=== PATIENT | male | born 1985 | race Caucasian/White ===

== ENCOUNTER 2016-10-28 01:39 | Inpatient (IN) | payer OTHER ==
[~2016-10-28] VITALS: Ht 180.3 cm; Wt 126.7 kg
[2016-10-28 02:20] LABS: HEMATOCRIT 44.9 % (38.0-50.0); MCH 28.7 PG (29.0-34.0); MCHC 34.3 G/DL (30.0-36.0); MCV 83.6 FL (86-99); MEAN PLAT.VOLUME 9.5 uM^3 (9.0-12.4); PLATELET COUNT 329 K/uL (156-360); RBC DIS.WIDTH-CV 14.2 % (11.8-14.6); RED BLOOD COUNT 5.37 M/uL (4.00-5.50); WHITE BLOOD COUNT 12.8 K/uL (4.1-10.2)
[2016-10-28 02:27] LABS: CHLORIDE 104 mEq/L (99-109); POTASSIUM 3.7 mEq/L (3.7-5.4); SODIUM 138 mEq/L (136-147)
[2016-10-28 02:28] LABS: GLUCOSE 116 mg/dL (70-99)
[2016-10-28 02:30] LABS: ANION GAP 11 MEQ/L (2-14)
[2016-10-28 02:32] LABS: GFR ESTIMATE (CALCULATED) > 59 mL/min/
[2016-10-28 02:33] LABS: UREA NITROGEN (BUN) 13 mg/dL (9-23)
[2016-10-28] MEDS ORDERED: PREDNISONE10 MG PO (03:58)
[2016-10-28] MEDS ORDERED: DULERA 100 MCG/13 GM IH (08:06)
[2016-10-28] MEDS ORDERED: PROAIR HFA8.5 GM IH (08:06)
[2016-10-28 12:49] VITALS: BP 133/83
[2016-10-28 18:18] VITALS: BP 136/81
[2016-10-29 03:07] VITALS: BP 133/77
[2016-10-29 06:13] LABS: HEMATOCRIT 44.2 % (38.0-50.0); MCH 28.4 PG (29.0-34.0); MCHC 32.8 G/DL (30.0-36.0); MCV 86.5 FL (86-99); MEAN PLAT.VOLUME 10.2 uM^3 (9.0-12.4); PLATELET COUNT 327 K/uL (156-360); RBC DIS.WIDTH-CV 14.4 % (11.8-14.6); RED BLOOD COUNT 5.11 M/uL (4.00-5.50); WHITE BLOOD COUNT 14.7 K/uL (4.1-10.2)
[2016-10-29 06:32] LABS: ANION GAP 9 MEQ/L (2-14); CHLORIDE 104 MEQ/L (99-109); GFR ESTIMATE (CALCULATED) > 59 mL/min/; GLUCOSE 143 mg/dL (70-99); POTASSIUM 4.4 MEQ/L (3.7-5.4); SAMPLE HEMOLYSIS CHECK 0; SAMPLE ICTERIC CHECK 0; SAMPLE LIPEMIA CHECK 0; SODIUM 136 MEQ/L (136-147); UREA NITROGEN (BUN) 16 mg/dL (9-23)
[2016-10-29 08:06] VITALS: BP 141/78
[2016-10-29 11:52] VITALS: BP 149/79
[2016-10-29 15:54] VITALS: BP 147/67
[2016-10-29 20:00] VITALS: BP 136/80
[2016-10-30 01:00] VITALS: BP 136/82
[2016-10-30 04:48] VITALS: BP 127/74
[2016-10-30 08:04] VITALS: BP 115/70
[2016-10-30 09:19] LABS: HEMATOCRIT 45.2 % (38.0-50.0); MCH 29.5 PG (29.0-34.0); MCHC 33.6 G/DL (30.0-36.0); MCV 87.6 FL (86-99); PLATELET COUNT 351 K/uL (156-360); RBC DIS.WIDTH-CV 14.6 % (11.8-14.6); RBC DIS.WIDTH-SD 46.5 % (39-53); RED BLOOD COUNT 5.16 M/uL (4.00-5.50)
[2016-10-30 11:50] VITALS: BP 137/74
[2016-10-30 15:57] VITALS: BP 134/87
[2016-10-30 20:40] VITALS: BP 155/90
[2016-10-31 00:23] VITALS: BP 155/75
[2016-10-31 04:32] VITALS: BP 134/89
[2016-10-31 06:08] LABS: EOSINOPHIL (%) 0.1 % (0-5); HEMATOCRIT 45.7 % (38.0-50.0); IMMATURE GRANULOCYTE (%) 1.2 % (0.0-0.7); IMMATURE GRANULOCYTE COUNT 0.2 K/uL; LYMPHOCYTE COUNT 1.7 K/uL (1.0-2.8); MCH 29.2 PG (29.0-34.0); MCHC 33.3 G/DL (30.0-36.0); MCV 87.9 FL (86-99); MONOCYTE (%) 5.7 % (3-12); NEUTROPHIL (%) 82.8 % (45-76); NEUTROPHIL COUNT 13.8 K/uL (1.8-6.4); PLATELET COUNT 349 K/uL (156-360); RBC DIS.WIDTH-CV 14.5 % (11.8-14.6); RBC DIS.WIDTH-SD 46.4 % (39-53); WHITE BLOOD COUNT 16.7 K/uL (4.1-10.2)
[2016-10-31 06:28] LABS: ANION GAP 8 MEQ/L (2-14); CHLORIDE 101 MEQ/L (99-109); GFR ESTIMATE (CALCULATED) > 59 mL/min/; GLUCOSE 154 mg/dL (70-99); POTASSIUM 5.1 MEQ/L (3.7-5.4); SAMPLE HEMOLYSIS CHECK 0; SAMPLE ICTERIC CHECK 0; SAMPLE LIPEMIA CHECK 0; SODIUM 137 MEQ/L (136-147); UREA NITROGEN (BUN) 18 mg/dL (9-23)
[2016-10-31 08:02] VITALS: BP 143/97
[2016-10-31 12:00] VITALS: BP 156/62
[2016-10-31] MEDS ORDERED: BENZONATATE100 MG PO (12:29)
[2016-10-31] MEDS ORDERED: PREDNISONE10 MG PO (12:29)
[2016-10-31] MEDS ORDERED: LORATADINE10 M2 PO (12:29)
[2016-10-31] MEDS ORDERED: CEPHALEXIN500 MG PO (12:29)
[2016-10-31] MEDS ORDERED: PROVENTIL,2.5 MG/0.5 AEROSOL (12:30)
[2016-10-31] MEDS ORDERED: ALBUTEROL2.5 MG/3 M IH (13:31)
== END 2016-10-31 14:31 | disposition home or self-care (01) | DRG 202 ==
LOC: EME 01:39 → EDOF 07:35 → 5WEST 11:34
PROVIDERS: Hospitalist; Internal Medicine
DX: J45.21 Mild intermittent asthma with (acute) exacerbation (principal); R65.10 Systemic inflammatory response syndrome (SIRS) of non-infectious origin without acute organ dysfunction; E66.9 Obesity, unspecified; J32.9 Chronic sinusitis, unspecified; R00.0 Tachycardia, unspecified; Z68.38 Body mass index [BMI] 38.0-38.9, adult; Z87.891 Personal history of nicotine dependence; Z88.0 Allergy status to penicillin
CPT/HCPCS: 71020; 80048; 85025; 85027; 94640; 94640 76; 94644; 94760; 99202; 99281; 99285; G0378; J1100; J1650; J2930; J3475

== ENCOUNTER 2017-07-05 08:37 | Emergency (ER) | payer OTHER ==
[~2017-07-05] VITALS: Ht 180.3 cm; Wt 119.0 kg
[~2017-07-05 08:37] MED LIST: ALBUTEROL2.5 MG/3 M IH; BENZONATATE100 MG PO; CEPHALEXIN500 MG PO; DULERA 100 MCG/13 GM IH; LORATADINE10 M2 PO; PREDNISONE10 MG PO; PROAIR HFA8.5 GM IH; PROVENTIL,2.5 MG/0.5 AEROSOL
[2017-07-05] MEDS ORDERED: PREDNISONE50 MG PO (11:14)
[2017-07-05] MEDS ORDERED: ZITHROMAX Z-PA250 MG PO (11:14)
[2017-07-05 11:27] VITALS: BP 123/76
== END 2017-07-05 11:27 | disposition home or self-care (01) ==
LOC: EME 08:37
DX: J45.901 Unspecified asthma with (acute) exacerbation (principal); F17.210 Nicotine dependence, cigarettes, uncomplicated; Z87.442 Personal history of urinary calculi; Z88.0 Allergy status to penicillin
CPT/HCPCS: 71020; 94640; 99281; 99285; J7512

== ENCOUNTER 2018-02-19 04:41 | Emergency (ER) | payer OTHER ==
[~2018-02-19] VITALS: Ht 180.3 cm; Wt 121.9 kg
[~2018-02-19 04:41] MED LIST changes: +PREDNISONE50 MG PO; +ZITHROMAX Z-PA250 MG PO
[2018-02-19 05:07] LABS: HEMATOCRIT 42.4 % (38.0-50.0); HEMOGLOBIN 14.5 G/DL (12.5-16.6); MCH 29.4 PG (29.0-34.0); MCHC 34.2 G/DL (30.0-36.0); RBC DIS.WIDTH-CV 13.2 % (11.8-14.6); RBC DIS.WIDTH-SD 40.9 % (39-53); RED BLOOD COUNT 4.93 M/uL (4.00-5.50); WHITE BLOOD COUNT 13.4 K/uL (4.1-10.2)
[2018-02-19 05:08] LABS: PLATELET COUNT 250 K/uL (156-360)
[2018-02-19 05:15] LABS: CHLORIDE 102 mEq/L (99-109); POTASSIUM 5.1 mEq/L (3.7-5.4); SODIUM 135 mEq/L (136-147)
[2018-02-19 05:17] LABS: GLUCOSE 151 mg/dL (70-99)
[2018-02-19 05:21] LABS: GFR ESTIMATE (CALCULATED) > 59 mL/min/ (58.99-99999)
[2018-02-19 05:22] LABS: UREA NITROGEN (BUN) 11 mg/dL (9-23)
[2018-02-19 05:28] LABS: TROP-I INTERPRETATION NEGATIVE; TROPONIN-I < 0.01 ng/mL (0.0-0.30)
[2018-02-19 07:39] VITALS: BP 106/69
== END 2018-02-19 07:45 | disposition home or self-care (01) ==
LOC: EME → EDBD 04:41 → EME 07:45
PROVIDERS: Emergency Medicine
DX: R00.0 Tachycardia, unspecified (principal); R00.2 Palpitations; T40.7X5A Adverse effect of cannabis (derivatives), initial encounter; J45.909 Unspecified asthma, uncomplicated; Z72.0 Tobacco use
CPT/HCPCS: 71046; 80048; 84484; 85027; 93005; 99281; 99284; J2060; J7030